=== PATIENT | male | born 1945 | race Caucasian/White ===

== ENCOUNTER 2018-08-14 09:40 | Observation (INO) | payer OTHER ==
[2018-08-14] MEDS ORDERED: ceFAZolin 2 GM/DEXTROSE 100 ML IV ONE (12:54)
[2018-08-14] MEDS ORDERED: LR 1,000 ML IV ONE (12:55)
[2018-08-14] MEDS ORDERED: BACITRACIN ZINC 0.5 OZ OINTTUBE TP ONE (15:28)
[2018-08-14] MEDS ORDERED: THROMBIN (BOVINE) 5,000 UNIT VIAL TP ONE (15:28)
[2018-08-14] MEDS ORDERED: LIDO/EPI 1% **Not for Epidural 20 ML MDV ONE (15:29)
[2018-08-14] MEDS ORDERED: BUPIVACAINE 0.5% 30 ML SDV ONE (15:29)
--- NOTE | 2018-08-14 15:37 | PDANEPAE ---
ANE History of Present Illness 72 year old with melanoma ANE Past Medical History - Cardiovascular History Hx Hypertension: Yes Hx Arrhythmias: Yes Hx Chest Pain: No Hx Coronary Artery / Peripheral Vascular Disease: No Hx CHF / Valvular Disease: No Hx Palpitations: No Cardiovascular History Comment: PSVT - Pulmonary History Hx COPD: No Hx Asthma/Reactive Airway Disease: No Hx Recent Upper Respiratory Infection: No Hx Oxygen in Use at Home: No Hx Sleep Apnea: Yes Sleep Apnea Screening Result - Last Documented: Positive Pulmonary History Comment: + MERLYN does not use CPAP - Neurologic History Hx Cerebrovascular Accident: No Hx Seizures: No Hx Dementia: No - Endocrine History Hx Diabetes: No - Renal History Hx Renal Disorders: No - Liver History Hx Hepatic Disorders: No - Neurological & Psychiatric Hx Hx Neurological and Psychiatric Disorders: No - Cancer History Hx Cancer: Yes Cancer History Comment: melanoma new dx - Congenital Disorder History Hx Congenital Disorders: No - GI History Hx Gastrointestinal Disorders: Yes Gastrointestinal History Comment: Gerd - Other Health History Other Health History: polymalgia rheumatica. [place] - Chronic Pain History Chronic Pain: Yes (arms,raising legs) - Surgical History Prior Surgeries: cholecystectomy. bilat cataract sx. herrnia repair with mesh ANE Review of Systems Review of Systems: - Exercise capacity METS (RN): 4 METS ANE Patient History - Allergies Allergies/Adverse Reactions: No Known Allergies Allergy (Verified 08/09/18 10:33) - Home Medications Home medications: home medication list seen and reviewed Home Medications: Atorvastatin Calcium [Lipitor 40 mg (*)] 80 mg PO HS 08/09/18 [Last Taken ] Lisinopril [Zestril 10 mg (*)] 10 mg PO DAILY 08/09/18 [Last Taken 08/13/18] Metoprolol Succinate Xr [Toprol Xl 25 mg (*)] 25 mg PO DAILY 08/09/18 [Last Taken 08/13/18] predniSONE 5 mg PO DAILY 08/09/18 [Last Taken 08/14/18] Pantoprazole Sodium [Protonix 40mg (*)] 40 mg PO DAILY 08/11/18 [Last Taken 02/20] - NPO status NPO Since - Liquids (Date): 08/14/18 NPO Since - Liquids (Time): 12:30 NPO Since - Solids (Date): 08/14/18 NPO Since - Solids (Time): 06:15 - Smoking Hx Smoking Status: Never smoked - Family Anes Hx Family Hx Anesthesia Complications: none ANE Labs/Vital Signs - Vital Signs Blood Pressure: 155/87 Heart Rate: 54 Respiratory Rate: 16 O2 Sat (%): 95 Height: 177.8 cm Weight: 75.75 kg ANE Physical Exam - Airway Neck exam: FROM Mallampati Score: Class 1 Mouth exam: normal dental/mouth exam - Pulmonary Pulmonary: no respiratory distress - Cardiovascular Cardiovascular: regular rate and rhythym - ASA Status ASA Status: II ANE Anesthesia Plan Anesthesia Plan: general endotracheal anesthesia
--- NOTE | 2018-08-14 17:00 | PDHPUP ---
History & Physical Update H&P update statement: This history and physical update is based on an assessment of the patient which was completed after admission or registration (within 24 hours), but prior to the surgery/procedure. H&P update: H&P reviewed & patient examined
[2018-08-14] MEDS ORDERED: ADENOSINE 6 MG/2 ML VIAL ONE (17:30)
[2018-08-14] MEDS ORDERED: fentaNYL 250 MCG/5 ML INJ ONE ×2 (17:32→18:55)
[2018-08-14] MEDS ORDERED: PROPOFOL 200 MG/20 ML VIAL ONE ×2 (17:32→18:55)
[2018-08-14] MEDS ORDERED: ONDANSETRON 4 MG/2 ML VIAL IVP PRN ×2 (20:16→20:40)
[2018-08-14] MEDS ORDERED: OXYCODONE/APAP 5/325 TAB PO PRN (20:16)
[2018-08-14] MEDS ORDERED: PROMETHAZINE HCL 25 MG/ML INJ IVP PRN ×2 (20:22→20:40)
[2018-08-14] MEDS ORDERED: NALOXONE HCL 0.4 MG/ML INJ IVP PRN (20:40)
[2018-08-14] MEDS ORDERED: HYDROCODONE/APAP 5/325 TAB ONE (20:40)
[2018-08-14] MEDS ORDERED: HYDROCODONE/APAP 5/325 TAB PO PRN (20:40)
--- NOTE | 2018-08-14 20:41 | POSTANESTH ---
Post Anesthetic Evaluation Cardiovascular Status: Normal, Stable, Tx Over/Under Hydration Level of Consciousness/Mental Status: Can Participate in Eval Pain Control: Adequate, Prn Tx Ordered Nausea/Vomiting Control: Adequate, Prn Tx Ordered Complications Possibly Related to Anesthesia: None Noted
[2018-08-14] MEDS ORDERED: fentaNYL 100 MCG/2 ML INJ ONE (20:45)
[2018-08-14] MEDS: fentaNYL 100 MCG/2 ML INJ IVP PRN ×2 (20:48→20:54)
[2018-08-14] MEDS: ACETAMINOPHEN 500 MG TAB PO PRN (21:52)
[2018-08-15] MEDS ORDERED: METOPROLOL SUCCINATE XR 25 MG TAB PO SCH ×2 (00:30→21:00)
[2018-08-15] MEDS ORDERED: LISINOPRIL 10 MG TAB PO SCH ×2 (00:30→21:00)
[2018-08-15] MEDS ORDERED: LISINOPRIL 10 MG TAB PO ONE ×2 (07:28→08:41)
[2018-08-15] MEDS: ACETAMINOPHEN 500 MG TAB PO PRN (07:42)
--- NOTE | 2018-08-15 07:58 | PDGENHP ---
History and Physical - Chief Complaint hypertension - History of Present Illness Source - Patient provides history and appears reliable. EMR reviewed and case discussed with EITAN Puri. Consult requested by ENT service to assist with BP management. HPI - this is a pleasant 72 yo M with pmhx significant for HTN, hx of SVT, HLD, gerd and melanoma s/p resection left ear and left neck dissection POD #1 with elevated blood pressures. Patient with a history of HTN and has been on metoprolol XL 25mg HS and lisinopril 10mg HS for the last several years. Patient denies any headache, changes in vision, chest pain, SOB. In the last several months he has noted SBPs 120s-150s. He has not addressed is variable blood pressures with his PCP yet. Patient reports that his postop pain at rest is 4 to 5/10. It is significantly worsened with movement and he is complaining more of pain along the posterior shoulder and neck more so than his postop site. Patient denies any fevers or chills. The patient's preoperative blood pressures reason 40s to 150s over 60s. Patient did not take any medications preoperatively and notes that he takes his antihypertensive at night and did so evening prior to surgery. History Information - Allergies/Home Medication List Allergies/Adverse Reactions: No Known Allergies Allergy (Verified 08/09/18 10:33) Home Medications: Atorvastatin Calcium [Lipitor 40 mg (*)] 80 mg PO HS 08/09/18 [Last Taken ] Lisinopril [Zestril 10 mg (*)] 10 mg PO DAILY 08/09/18 [Last Taken 08/13/18] Metoprolol Succinate Xr [Toprol Xl 25 mg (*)] 25 mg PO DAILY 08/09/18 [Last Taken 08/13/18] predniSONE 5 mg PO DAILY 08/09/18 [Last Taken 08/14/18] Pantoprazole Sodium [Protonix 40mg (*)] 40 mg PO DAILY 08/11/18 [Last Taken 02/20] I have personally reviewed and updated: family history, medical history, social history, surgical history - Past Medical History GERD, hypertension, hyperlipidemia, SVT Additional medical history: Melanoma. Patient notes some mild memory deficit. Hearing deficit wears hearing aids - Surgical History Additional surgical history: Hernia repair. Resection of melanoma left ear and left neck dissection - Family History Additional family history: Mother and father with HTN - Social History Smoking Status: Never smoked Alcohol Use: Other (Patient reports he has 2 drinks of liquor daily.) Drug Use: None Additional social history: retired. . family in town and supportive. COR - FULL. Review of Systems Review of Systems: ROS: 10pt was reviewed & negative except for what was stated in HPI & below Physical Exam Physical Exam: Selected Entries 08/14/18 08/14/18 08/15/18 13:07 23:48 01:03 Heart Rate 54 L Respiratory 16 Rate O2 Sat (%) 95 Temperature (C) 36.5 C Blood Pressure 155/87 H 169/106 H 174/103 H Temp Pulse Resp BP Pulse Ox 36.8 C 77 16 163/95 H 94 08/15/18 05:12 08/15/18 05:12 08/15/18 05:12 08/15/18 07:42 08/15/18 05:12 O2 (L/minute) 1 Constitutional: no apparent distress, appears nourished, uncomfortable (With movement), other (NAD. Pleasant adult gentleman is resting quietly in bed.) Eyes: PERRL, anicteric sclera, EOMI, No scleral injection Ears, Nose, Mouth, Throat: moist mucous membranes, hard of hearing, No ears appear normal (Left ear with postop changes) Cardiovascular: regular rate and rhythym, no murmur, rub, or gallop, No edema Peripheral Pulses: 1+: dorsalis-pedis (R), dorsalis-pedis (L) Respiratory: no respiratory distress, no rales or rhonchi, clear to auscultation , reduced air movement (Diminished inspiratory effort.), No inspiratory crackles Genitourinary: no bladder tenderness, No price in urethra Skin: warm, other (Left ear and neck with postoperative changes no active bleeding.) Musculoskeletal: other (Decreased movement of the left upper extremity secondary to pain. Patient moves all other extremities) Neurologic: AAOx3, sensation intact bilaterally, other (Grossly nonfocal.), No facial droop Psychiatric: interacting appropriately, not anxious, not encephalopathic, thought process linear Assessment & Plan Assessment: This is a pleasant 72 yo M with pmhx significant for HTN, hx of SVT, HLD, gerd and melanoma s/p resection left ear and left neck dissection POD #1 with elevated blood pressures. #benign essential HTN - patient reports he has had variable blood pressures over the last several months. He denies any symptoms. He normally takes metoprolol and lisinopril at HS. He was given his evening doses approximately 0100 in blood pressures have down trended just minimally. He is on relatively dose of lisinopril and metoprolol. Will give additional 10 mg dose lisinopril now. Anticipate patient should be discharging this morning per my discussion with primary team. Patient does have a blood pressure monitor at home. Advised that if his pain is controlled and his blood pressures are still elevated with a systolic greater than 160 and diastolic greater than 100 to increase his evening dose of lisinopril to 20 mg and maintain is metoprolol at 25 mg. Patient also restrict his salt intake. He should follow up with his primary care doctor if he continues to have elevated blood pressures for additional adjustments. #HLD - continue simvistatin at discharge. #GERD - continue protonix #hx SVT - continue metoprolol at home dose. #melenoma POD #1 - as per primary team. The patient taking a slightly diminished breath that is incentive spirometer has been ordered. Ice pack p.r.n. 1st posterior shoulder pain or as per primary team. FEN - IV saline locked. low sodium diet discussed with patient. Thank you for this consultation. We will follow along with you if patient should require additional observation otherwise recommendations as noted above. Please call with any questions.
--- NOTE | 2018-08-15 08:42 | HOSPPROG ---
Hospitalist Progress Note Assessment/Plan: DIAGNOSES: * Melanoma status post resection * Hypertension - remains with systolic and diastolic hypertension here so far * Hyperlipidemia * History of SVT PLANS: * Recommend increasing lisinopril 20 mg daily -will give an extra 10 mg does this morning and recommend starting 20 mg at night tonight * otherwise stable from IM standpoint SUBJECTIVE: feels well overall minimal pain, no sob, no angina, no nausea OBJECTIVE Vitals reviewed: BPs remain high now 178/98, other vitals stable Exam: alert oriented skin warm dry color ok wound looks ok resps not labored lungs clear BSs heart regular limbs warm, no edema iv site ok Objective: Vital Signs Temp Pulse Resp BP Pulse Ox 36.8 C 77 16 163/95 H 94 08/15/18 05:12 08/15/18 05:12 08/15/18 05:12 08/15/18 07:42 08/15/18 05:12 08/14/18 08/15/18 08/16/18 06:59 06:59 06:59 Intake Total 2220 Output Total 40 Balance 2180 ICD10 Worksheet Patient Problems: Problems Problem Status Onset HTN (hypertension) Acute - ICD10 Problem Qualifiers (1) HTN (hypertension)
[2018-08-15] MEDS ORDERED: predniSONE 5 MG TAB PO SCH (09:00)
[2018-08-15] MEDS ORDERED: PANTOPRAZOLE SODIUM 40 MG TAB PO SCH (09:00)
--- NOTE | 2018-08-15 09:24 | ASMTCASEMG ---
Living Arrangements What is your living Answers: With Spouse arrangement? Who do you live with? Type Of Residence What kind of residence do Answers: House you live in? Discharge Plan Comments Coordination Status Comments Notes: Patient is a 72yo male with hx of HTN, SVT, HLD, gerd, and melanoma with resection of left ear and left neck dissection. Patient is being admitted OBS for elevated blood pressures. No therapies ordered at this time. D/C plan TBD. CM will follow. Date Signed: 08/15/2018 09:23 AM Electronically Signed By:Zeenat Garibay LCSW
--- NOTE | 2018-08-15 09:32 | PDDCSUM ---
Discharge Summary Discharge Summary: Pt POD#1 s/p excision left ear melanoma Doing well. Pain controlled Incision c/d/i Cranial nerves intact Okay for discharge follow up 1 week in office pt seen by Dr. Bruno
[2018-08-15 10:06] VITALS: BP 146/84
--- NOTE | 2018-08-15 10:49 | GOP ---
[f rep st] OPERATIVE REPORT DATE OF OPERATION: 08/14/2018 SURGEON: Mj Bruno MD TELECOMMUNICATIONS NETWORK ENGINEER: Dr. Shaheen Marie. ANESTHESIA: General. PREOPERATIVE DIAGNOSIS: Left ear melanoma. POSTOPERATIVE DIAGNOSIS: Left ear melanoma. PROCEDURE PERFORMED: Excision of left ear melanoma with auriculectomy with flap reconstruction. FINDINGS: SPECIMENS: For pathology are from the left ear excision of melanoma and auriculectomy. ESTIMATED BLOOD LOSS: Less than 100 mL. INDICATIONS: Left ear melanoma. DESCRIPTION OF PROCEDURE: Patient is a 72-year-old male brought to the operating room where general anesthesia induced, endotracheal intubation performed. The face and left ear and neck were prepped a nd draped in sterile fashion exposing keeping the portions of the face exposed to monitor facial nerv e movement along the corner of the mouth and corner of the eye using 10/10 drapes. With the patient prepped and draped in a sterile fashion, procedure was begun by using 1% lidocaine w ith epinephrine 1:100,000 strength infiltrated subcutaneously into the region of the planned auricule ctomy, roughly 8 mL were used. The melanoma was identified and a 2+ cm margin of tissue was marked o ut circumferentially around the melanoma and a 10 blade used to excise the lower 2/3 portion of the p atient's ear in a [id number] fashion taking anterior and posterior skin, as well as cartilag e and soft tissue in the postauricular sulcus region as part of a complete specimen for auriculectomy . The specimen was removed in this fashion and then marked with sutures for pathology orientation and sent for routine pathology. The wound was then copiously irrigated and any bleeding controlled with bipolar electrocautery. The small portion of the base of the earlobe was retained, as well as the upper third of the helix and co nchal architecture. The patient then had a partial parotidectomy and lymph node dissection performed with Dr. Marie, is the primary surgeon and me as the circulation assistant, so please see his dictation for that portion of the pro cedure. At the conclusion of Dr. Marie's procedure, the patient had a flap reconstruction of his l eft ear. Flaps were elevated inferiorly, as well as anteriorly and posteriorly circumferentially cassandra und the ear, and using the incision created for the parotidectomy, flaps were advanced and rotated in to place with 2 flaps, 1 anterior inferiorly which is rotated posterior superiorly and a second poste rior based inferior flap, which was rotated superiorly to help reconstruct the auricular defect. The se flaps are developed in a deep subcutaneous plane with dissection off the sternocleidomastoid muscl e and deep musculature and rotated into place, advanced and sewn in place using 3-0 Vicryl suture and a 4-0 nylon suture to close the defect. The flaps were done in a way to help create the possibiliti es for further ear reconstruction in the future. The patient then had the wounds copiously cleaned and covered with bacitracin ointment, and the patie nt was awakened, extubated uneventfully, and brought to recovery in stable condition where he is expe cted to do well postoperatively. The patient tolerated the procedure well. HISTORY OF PRESENT ILLNESS: History is that of a 72-year-old gentleman who has a left ear biopsy-pro leticia melanoma. Risks, benefits, indications, options, possible complications of this procedure were d iscussed at length with the patient prior to signing informed consent and he was given a chance to petersen ve his questions answered. There is a portion of this procedure that as a note, that portion of this procedure will be dictated by Dr. Shaheen Marie who performed the parotidectomy/lymph node dissecti on portion of the procedure. /[id number]/MODL
--- NOTE | 2018-08-15 10:54 | GOP ---
[f rep st] OPERATIVE REPORT DATE OF OPERATION: 08/14/2018 SURGEON: Shaheen Marie MD BLASTING GANG MINER: Mj Bruno MD. ANESTHESIA: General endotracheal. PREOPERATIVE DIAGNOSIS: Left auricular melanoma with sentinel node. POSTOPERATIVE DIAGNOSIS: Left auricular melanoma with sentinel node. PROCEDURE PERFORMED: Left lateral parotidectomy with identification of the facial nerve. FINDINGS: Good uptake in the left tail of parotid with identification and stimulation of the facial nerve in all branches. SPECIMENS: We sent the tail of the parotid for permanent section analysis. DESCRIPTION OF PROCEDURE: The patient was in the radiology suite earlier in the day. He had a melan marco in the left ear. They did inject it in the nuclear medicine service with radioactive tracer. He is brought to the operating room. His left neck and ear had been marked in the preoperative holding area. He was orally endotracheally intubated. The left neck and the ear were sterilely prepped and draped. We did an excision of the left ear lesion and a large rotational advancement flap for recon structive purposes. Please see Dr. Bruno's note for details of the excision and reconstruction. W e did use the radioactive probe and identified the most increased uptake in the left tail of the paro tid/level 1 area. We extended our excision site down into the neck in a relaxed skin tension crease and dissected in a subplatysmal plane anteriorly and posteriorly. We identified the sternocleidomast oid muscle and dissected the tissue away from the sternocleidomastoid muscle. We did sacrifice the g reater auricular nerve and the patient was aware of this preoperatively. We noted increased uptake c oming from the left tail of the parotid at 1200 units. We dissected the tail of the parotid away fro m the sternocleidomastoid muscle and dissected over the parotid gland. We dissected up the sternocle idomastoid towards the stylomastoid foramen. Using the [place] stimulator, we were able to identify t he facial nerve there. We dissected away the tail of the parotid from the mandibular branch of the f acial nerve. Using the radioactive probe, we did note uptake of 1400 units in our excision specimen. No further uptake of significance was noted in the neck or parotid bed. We stimulated the facial n erve and the nerve moved in all branches. He tolerated this portion of procedure well. Please see Nikki Bruno's note for other details of the excision, reconstruction, and closure. /[id number]/MODL
[2018-08-15] MEDS ORDERED: ATORVASTATIN CALCIUM 40 MG TAB PO SCH (21:00)
== END 2018-08-15 11:37 | disposition home or self-care (01) ==
LOC: F3E 12:30 → F1N 21:48
PROVIDERS: ADMIT Otolaryngology; ATTEND Otolaryngology
PROC: 0CB90ZZ Excision of Left Parotid Gland, Open Approach (ICD-10-PCS; principal; 2018-08-14 16:30)
PROC: 0HX3XZZ Transfer Left Ear Skin, External Approach (ICD-10-PCS; principal; 2018-08-14 16:30)
PROC: 09B1XZZ Excision of Left External Ear, External Approach (ICD-10-PCS; principal; 2018-08-14 16:30)
PROC: 07B20ZZ Excision of Left Neck Lymphatic, Open Approach (ICD-10-PCS; principal; 2018-08-14 16:30)
DX: C43.22 Malignant melanoma of left ear and external auricular canal (principal); I10 Essential (primary) hypertension; K21.9 Gastro-esophageal reflux disease without esophagitis; E78.5 Hyperlipidemia, unspecified; I47.1 Supraventricular tachycardia
CPT/HCPCS: 14060; 38510; 42415; 69150; 78195; A9520; G0378; J0690; J2704; J3010; J7512; J0153